=== PATIENT | female | born 1995 | race African-American/Black ===

== ENCOUNTER 2016-10-22 13:51 | Emergency (ER) | payer BC ==
[~2016-10-22] VITALS: Ht 160 cm; Wt 80.0 kg
[~2016-10-22 13:51] MED LIST: CALNA PO; FISH OIL1000 MG; IRON325 M1 PO
[2016-10-22] MEDS ORDERED: AMOXICILLIN500 MG PO (14:12)
[2016-10-22] MEDS ORDERED: MOTRIN800 MG PO (14:12)
[2016-10-22 14:20] VITALS: BP 123/69
== END 2016-10-22 14:26 | disposition home or self-care (01) | DRG 153 ==
LOC: ED 13:51
DX: H66.92 Otitis media, unspecified, left ear (principal)

== ENCOUNTER 2017-08-26 06:38 | Inpatient (IN) | payer BC, MEDICAID ==
[2017-08-26] VITALS (11 sets, daily range): BP systolic 91–119; BP diastolic 52–712
[~2017-08-26] VITALS: Ht 160 cm; Wt 79.8 kg
[~2017-08-26 06:38] MED LIST changes: +AMOXICILLIN500 MG PO; +FERR SULFATE325 MG PO; +MOTRIN800 MG PO; +PRENATAL1 TA1
--- NOTE | 2017-08-26 06:46 | NUR ---
, 40+5, C/O BLEEDING AND CRAMPING. PAD ON WC TOTALLY SATURATED WITH BRIGHT RED BLOOD. PT TRANSFERRED TO BED, LARGE AMT BRIGHT RED BLOOD POOLING DOWN HER LEG, LEAVING A 2 FOOT DIAMETER OF BLOOD ON THE FLOOR. FHT 150, DR SANCHEZ CALLED TO COME TO UNIT.
--- NOTE | 2017-08-26 07:15 | NUR ---
0710 DR SANCHEZ HERE, PLAN TO DO EMERGENCY C SECTION, PT ACKNOWLEDGES. VE BY DR SANCHEZ, PRESENTING PART NOT FELT. SMITH CATHETER INSERTED TO STRAIGHT DRAINAGE. 0715 EFM OFF, PT TO ROOM FOR C SECTION.
--- NOTE | 2017-08-26 07:30 | NUR ---
PRIMARY STAT SECTION FOR PLACENTAL ABRUPTION. TO RADIANT WARMER PER MD. NO HR, NO RESP EFFORT, NO TONE, CYANOTIC. DRIED/STIMULATED/PPV INITIATED AT 100% O2 PER [place]. 30 SECONDS HR 70 PPV CONTINUED 1 MIN HR 70, GASPING, NO TONE, CYANOTIC PULSE OX APPLIED, NOT REGISTERING 1 MIN 30 SEC HR 110, WEAK CRY, POOR RESPIRATORY EFFORT, CPAP CONTINUED 3 MIN HR 150, PULSE OX 50% 4 MIN HR 177, PULSE OX 50% 5 MIN O2 SAT 70%, O2 DECREASED TO 40% O2 SAT 88%, O2 DECREASED TO 30% 6 MIN HR 169, O2 SAT 86, O2 DECREASED TO 24% GOOD TONE, WEAK CRY BLOW BY ADMINISTERED AT 30% 9 MIN HR 186, O2 SAT 88% 0744 INFANT BANDED/FOOTPRINTS, TO NURSERY IN STABLE CONDITION 0800 DR VANCE IN NURSERY, REPORT GIVEN
[2017-08-26 07:34] LABS: HEMATOCRIT 30.6 % (37.0-47.0); HEMOGLOBIN 9.6 g/dl (12.0-16.0); IMMATURE GRANULOCYTES 0.9 % (0.0-1.0); MEAN CELL VOLUME 74.5 fL CALC (80.0-100.0); MEAN CORPUSCULAR HGB 23.4 pG CALC (26.0-32.0); MEAN CORPUSCULAR HGB CONC 31.4 g/L CALC (32.0-36.0); NEUT# 6.12 thou/uL (2.00-7.15); RED BLOOD COUNT 4.11 mill/uL (4.20-5.60)
[2017-08-26 07:38] LABS: URINE BILIRUBIN - DIPSTICK NEGATIVE (NEGATIVE); URINE BLOOD DIPSTICK SMALL (NEGATIVE); URINE COLOR YELLOW; URINE GLUCOSE - DIPSTICK NEGATIVE (NEGATIVE); URINE KETONE TRACE mg/dL (NEGATIVE); URINE LEUK ESTERASE NEGATIVE (NEGATIVE); URINE PROTEIN - DIPSTICK NEGATIVE (NEG-TRACE); URINE SPECIFIC GRAVITY >=1.030
[2017-08-26 07:40] LABS: ALBUMIN 3.1 g/dL (3.2-5.0); ALKALINE PHOSPHATASE 288 u/l (38-126); ANION GAP 15 (6-22 (CALC)); BILIRUBIN, TOTAL 0.6 mg/dL (0.0-1.4); BUN 2 mg/dL (7-17); BUN/CREATININE RATIO 4 (12-20 (CALC)); CARBON DIOXIDE 18 mmol/l (22-30); CHLORIDE 110 mmol/l (95-108); CREATININE 0.6 mg/dL (0.5-1.0); GFR > 60 ML/MIN (>=60 (CALC)); GFR FOR AFR.AMER. > 60 ML/MIN (>=60 (CALC)); POTASSIUM 3.4 mmol/l (3.5-5.1); SGOT/AST 24 u/l (14-36); SGPT/ALT 17 u/l (9-52); SODIUM 140 mmol/l (137-146)
[2017-08-26 07:43] LABS: BARBITURATES NEGATIVE (NEGATIVE); COCAINE NEGATIVE (NEGATIVE); METHADONE NEGATIVE (NEGATIVE); OXCYCODONE NEGATIVE (NEGATIVE); TETRAHYDROCANNABIONOL NEGATIVE (NEGATIVE); TRICYLIC ANTIDEPRESSANTS NEGATIVE (NEGATIVE); URINE BACTERIA RARE hpf; URINE CLARITY CLEAR; URINE EPITHELIAL CELLS FEW EPI/hpf (0-FEW); URINE NITRITE - DIPSTICK NEGATIVE (Negative); URINE WBC 0-2 WBC/hpf (0-5)
[2017-08-26 09:24] LABS: HEMATOCRIT 26.6 % (37.0-47.0); HEMOGLOBIN 8.3 g/dl (12.0-16.0); MEAN CELL VOLUME 75.1 fL CALC (80.0-100.0); MEAN CORPUSCULAR HGB 23.4 pG CALC (26.0-32.0); MEAN CORPUSCULAR HGB CONC 31.2 g/L CALC (32.0-36.0); NEUT# 9.49 thou/uL (2.00-7.15); RED BLOOD COUNT 3.54 mill/uL (4.20-5.60); RED CELL DISTRI WIDTH 16.3 % (11.5-15.5)
--- NOTE | 2017-08-26 09:40 | NUR ---
PT IS IN REC RM. DR SANCHEZ NOTIFIED OF HGB, HCT, PLT RESULTS DRAWN IN REC RM, PT HAS RECEIVED TOTAL 40 UNITS PITOCIN, FUNDUS FIRM. LOCHIA LIGHT, VS STABLE, PLAN TO CONTINUE IV FLUIDS LR. CONTINUE CYTOTEC ORDERED. REPEAT CBC IN 6 HRS.
--- NOTE | 2017-08-26 10:00 | NUR ---
PT TO ROOM 205 VIA STRETCHER, PT AWAKE, ALERT, MOVED TO BED, ABLE TO DEEP BREATHE. SCDS MAINTAINED, INFUSING W/O PROBLEM, SMITH DRAINS PALE YELLOW URINE W/O PROBLEM. PT SETTLED IN BED, FUNDUS FIRM. LOCHIA LIGHT.
--- NOTE | 2017-08-26 10:19 | NUR ---
REPORT TO ONCOMING NURSE, TO ROOM TO INTRODUCE TO PT.
--- NOTE | 2017-08-26 10:25 | NUR ---
PT SETTLED IN BED, FAMILY VISITS, PT TAKING ICE CHIPS, WATER PO. C/O THIRST, ENC TO TAKE PO FLUIDS SLOWLY. IV APPRAISER LAND INFUSES VIA PUMP, EXPLAINED TO PT.
[2017-08-26 10:46] LABS: ACT PARTIAL THROMBO TIME 26.5 SECONDS (20.0-32.5); PROTHROMBIN TIME 10.9 SECONDS (9.0-12.5)
--- NOTE | 2017-08-26 10:52 | NUR ---
PT RESTS, MEDICATED OR PAIN.
--- NOTE | 2017-08-26 12:10 | NUR ---
HOLDING , POSITIVE BONDING, S/O IN ROOM.
--- NOTE | 2017-08-26 12:30 | NUR ---
PT SITS QUIELTY DRINKS CLEAR FLUIDS. FUNDUS FIRM, LOCHIA LIGHT.
[2017-08-26] MEDS ORDERED: PRE-NATAL PO (12:55)
--- NOTE | 2017-08-26 14:00 | NUR ---
TALKS ON CELL PHONE, S/O AT SIDE.
[2017-08-26 15:54] LABS: HEMATOCRIT 23.7 % (37.0-47.0); HEMOGLOBIN 7.3 g/dl (12.0-16.0); IMMATURE GRANULOCYTES 0.4 % (0.0-1.0); MEAN CORPUSCULAR HGB 23.1 pG CALC (26.0-32.0); MEAN CORPUSCULAR HGB CONC 30.8 g/L CALC (32.0-36.0); NEUT# 7.49 thou/uL (2.00-7.15); RED BLOOD COUNT 3.16 mill/uL (4.20-5.60); RED CELL DISTRI WIDTH 15.9 % (11.5-15.5)
--- NOTE | 2017-08-26 16:25 | NUR ---
DR SANCHEZ NOTIFIED OF CBC RESULTS, PT STATUS, PLAN TO REPEAT CBC IN AM.
--- NOTE | 2017-08-26 17:24 | NUR ---
PT SITS IN BED TALKING ON CELL PHONE.
--- NOTE | 2017-08-26 19:00 | NUR ---
CARMINA CARE DONE, PT ABLE TO LIFT W/O PROBLEM. PT MEDICATED FOR PAIN WITH TORADOL. PT SITS IN BED HOLDING INFANT, GIVEN SODA PER REQUEST.
--- NOTE | 2017-08-26 19:30 | NUR ---
PT CARE ASSUMED, REPORT RECEIVED FROM MANISHA Palacios RN, PT AWAKE AND ALERT, RESTING IN BED- NO APPARENT DISTRESS OF ANY KIND NOTED, PT DENIES ANY CONCERNS AT THIS TIME, ASSESSMENT DONE- ALL WNL, IVF'S INFUSING W/OUT DIFFICULTY ORDERED, PT ENCOURAGED TO CALL NURSE FOR ANY NEEDS OR CONCERNS- VERBALIZES UNDERSTANDING, CALL BRIONES WITHIN PT'S REACH.
--- NOTE | 2017-08-26 20:17 | NUR ---
2014: PT COMPLAINS OF NOSE ITCHING. PT SCRATCHING NOSE VIGOURSLY. OFFERED NUBAIN AND PT ACCEPTED. 2017: MEDICATED WITH NUBAIN AND PERICOLACE AT THIS TIME.
[2017-08-27] VITALS: BP 94/57
--- NOTE | 2017-08-27 | NUR ---
PT AWAKE AND ALERT- RESTING IN BED, VSS, IVF'S CONT INFUSING W/OUT DIFFICULTY, PT ASSISTED UP OOB TO BR- PT VOIDED, PT RETURNED SELF TO BED W/OUT DIFFICULTY, PT C/O PAIN- MEDICATED ORDERED, WILL CONT TO MONITOR.
[2017-08-27 04:00] VITALS: BP 92/47
--- NOTE | 2017-08-27 06:00 | NUR ---
PT RESTING QUIETLY IN BED- AROUSES EASILY, AM LAB DRAWN ORDERED, PT DENIES ANY CONCERNS AT THIS TIME, REENCOURAGED TO CALL OUT FOR ANY NEEDS- PT VERBALIZES UNDERSTANDING.
[2017-08-27 06:29] LABS: HEMATOCRIT 21.8 % (37.0-47.0); IMMATURE GRANULOCYTES 0.6 % (0.0-1.0); MEAN CELL VOLUME 75.4 fL CALC (80.0-100.0); MEAN CORPUSCULAR HGB 23.2 pG CALC (26.0-32.0); MEAN CORPUSCULAR HGB CONC 30.7 g/L CALC (32.0-36.0); NEUT# 5.79 thou/uL (2.00-7.15); RED BLOOD COUNT 2.89 mill/uL (4.20-5.60); RED CELL DISTRI WIDTH 16.1 % (11.5-15.5)
[2017-08-27 06:30] LABS: HEMOGLOBIN 6.7 g/dl (12.0-16.0)
[2017-08-27 07:05] VITALS: BP 102/54
--- NOTE | 2017-08-27 07:05 | NUR ---
REPORT RECEIVED BY JOÃO LEIVA. 8941: PT IS RESTING IN BED. ASSESSMENT DONE AND VS CHARTED. PT STATED THAT SHE DOES NOT HAVE PAIN AT THIS TIME. PT STATED THAT SHE HAD A BM. PT DENIES ANY NEEDS AT THIS TIME. CALL LIGHT IN REACH.
--- NOTE | 2017-08-27 07:05 | NUR ---
0650: REPORT RECEIVED BY JOÃO LEIVA. 0705: PT IS RESTING IN BED. ASSESSMENT DONE AND VS CHARTED. PT STATED THAT SHE DOES NOT HAVE PAIN AT THIS TIME. PT STATED THAT SHE HAS NOT PASS GAS YET. ENCOURAGE PT TO AMBULATE IN THE HALLWAYS. PT VERBALIZED UNDERSTANDING. PT DENIES ANY NEEDS AT THIS TIME. CALL LIGHT IN REACH.
--- NOTE | 2017-08-27 07:50 | NUR ---
REVIEW PT CBC. DR. SANCHEZ AT BEDSIDE. DICUSSED PLAN OF CARE WITH PATIENT AND PATIENT VERBALIZED UNDERSTANDING. PT DENIES FEELING DIZZY.
--- NOTE | 2017-08-27 09:51 | NUR ---
0936:DR. BERRIOS CALLED RE: PT CBC. NOTIFIED MD THAT DR. SANCHEZ IS AWARE. NOTIFIED PT ABOUT A BLOOD TRANSFUSION PER DR. BERRIOS. PATIENT STATED THAT SHE WANTED TO THINK ABOUT IT. PT STATED THAT SHE WANTS TO TAKE A SHOWER LATER. ENCOURAGE PT TO DRINK FLUIDS AND PT VERBALIZED UNDERSTANDING. 0940: PT OOB TO THE BATHROOM AND PT STATED THAT SHE DID NOT FEEL DIZZY. 0951: PAIN MEDICATION GIVEN SEE EMAR.
--- NOTE | 2017-08-27 10:21 | NUR ---
REGINERT IN TO SETUP PT FOR INCENTIVE SPIROMERTY.
--- NOTE | 2017-08-27 11:46 | NUR ---
1140:OOB TO VOID . LOCHIA IS LIGHT. PT STATED THAT SHE DOES NOT FEEL DIZZY. PT STATED THAT SHE FEELS LIKE SHE IS GOING TO START PASSING GAS. SISTER IN ROOM. 1146: DR. BERRIOS AT BEDSIDE. DISCUSSED WITH PT ABOUT HER CBC. PT STATED THAT SHE DOES NOT WANT TO GET A BLOOD TRANSFUSION.
--- NOTE | 2017-08-27 13:11 | NUR ---
PT IS SITTING IN BED VISITING WITH FAMILY. PT DENIES ANY NEEDS AT THIS TIME.
--- NOTE | 2017-08-27 14:00 | NUR ---
1346: PAIN MEDICATION GIVEN SEE EMAR. 1352: PT AMBULATING IN THE HALLWAY HOLDING TO INFANT CRIB. NURSE AT SIDE. PT DENIES FEELING DIZZY. 1400: PATIENT IN THE BATHROOM TO VOID. SETUP PT FOR A SHOWER.
[2017-08-27 15:50] VITALS: BP 105/69
--- NOTE | 2017-08-27 16:39 | NUR ---
PT IS RESTING IN BED VISITING WITH FAMILY. PT DENIES ANY NEEDS AT THIS TIME. CALL LIGHT IN REACH.
--- NOTE | 2017-08-27 18:16 | NUR ---
PT STATED THAT SHE HAS PASS GAS NOW. ENCOURAGE PT TO AMBULATE AGAIN IN THE HALLWAYS AND PT VERBALIZED UNDERSTADNIG. PT DENIES ANY NEEDS AT THIS TIME. REPORT READY FOR ONCOMING SHIFT.
[2017-08-27 21:50] VITALS: BP 113/58
--- NOTE | 2017-08-27 22:10 | NUR ---
2149 PT ASSESSMENT AND VS STABLE CHARTED. PT C/O PAIN AND GRIMACED WITH FEEL TO ABDOMAN. 2207 MOTRIN GIVEN PER EMAR. PT ASSISTED UP IN BED DUE TO PAIN. BECAME TEARY EYED. ASKED PATIENT WHAT WAS WRONG, SHE EXPLAINED SHE WAS FINE. DECLINED TO TALK. EXPLAINED TO CALL IF THERE WAS ANYTHING WE COULD DO OR GET HER. ENCOURAGED FLUIDS AND BROUGHT JUICE. CALL LIGHT IN REACH. FOB AT BEDSIDE. WILL CONTINUE TO MONITOR.
--- NOTE | 2017-08-27 23:50 | NUR ---
PT ASSISTED UP TO BATHROOM SLIGHTLY BENT OVER HOLDING ABDOMAN. URINATED LARGE AMOUNT. PERICARE DONE BY PATIENT AND ASSISTED BACK TO BED. PT OFFERED PAIN MED. STATES SHE WAS DOING OK UNTIL SHE TRIED TO GET UP.
--- NOTE | 2017-08-28 07:01 | NUR ---
REPORT GIVEN TO Harvinder DENNIS RN. PT LAYING IN BED WITH NEXT TO HER AWAKE. DENIES PAIN AT THIS TIME. GATORADE GIVEN PER REQUEST. CALL LIGHT IN REACH. S/O AT BEDSIDE.
--- NOTE | 2017-08-28 07:03 | NUR ---
PT AWAKE, RESTING IN BED. MEDICATED WITH LORTAB FOR PAIN. DENIES ANY OTHER NEEDS AT THIS TIME.
[2017-08-28 08:20] VITALS: BP 100/55
--- NOTE | 2017-08-28 08:20 | NUR ---
VS AND ASSESSMENT DONE, STABLE, DENIES ANY PAIN AT THIS TIME. DISCUSSED PLAN OF CARE WITH PT, PT VERBALIZED UNDERSTANDING.
[2017-08-28] MEDS ORDERED: LORTAB 7.57.5 MG PO (09:10)
[2017-08-28] MEDS ORDERED: IBUPROFEN600 MG PO (09:10)
[2017-08-28] MEDS ORDERED: FERR SULFATE325 MG PO (09:12)
--- NOTE | 2017-08-28 10:00 | NUR ---
DISCHARGE INSTRUCTIONS GIVEN TO PT, INCLUDING RX FOR MOTRIN, LORTAB AND IRON. PT REFUSED TDAP VACCINE, AND STATES SHE ALREADY HAD THE FLU VACCINE. ALL QUESTIONS ANSWERED. PT VERBALIZED UNDERSTANDING.
--- NOTE | 2017-08-28 12:50 | NUR ---
PT DISCHARGED HOME, IN STABLE CONDITION, VIA WHEELCHAIR, WITH FAMILY MEMBER.
== END 2017-08-28 12:45 | disposition home or self-care (01) | DRG 766 ==
LOC: OBOP 06:38 → EDSTATUS 06:40 → OB 06:50 → OBOP 06:50 → OB 07:00
PROVIDERS: ADMIT Obstetrics & Gynecology; ATTEND Obstetrics & Gynecology
PROC: 10D00Z1 Extraction of Products of Conception, Low, Open Approach (ICD-10-PCS; principal; 2017-08-26)
DX: O45.93 Premature separation of placenta, unspecified, third trimester (principal); O32.2XX0 Maternal care for transverse and oblique lie, not applicable or unspecified; O62.2 Other uterine inertia; Z37.0 Single live birth; Z3A.40 40 weeks gestation of pregnancy

== ENCOUNTER 2018-10-22 13:12 | Emergency (ER) | payer BC, MEDICAID ==
[~2018-10-22] VITALS: Ht 160 cm; Wt 69.5 kg
[~2018-10-22 13:12] MED LIST changes: +IBUPROFEN600 MG PO; +LORTAB 7.57.5 MG PO; +PRE-NATAL PO
[2018-10-22 14:06] LABS: MEAN CORPUSCULAR HGB 19.8 pG CALC (26.0-32.0); MEAN CORPUSCULAR HGB CONC 29.5 g/L CALC (32.0-36.0); NEUT# 2.16 thou/uL (2.00-7.15); RED BLOOD COUNT 4.85 mill/uL (4.20-5.60); RED CELL DISTRI WIDTH 17.6 % (11.5-15.5)
[2018-10-22 14:07] LABS: HEMATOCRIT 32.5 % (37.0-47.0); HEMOGLOBIN 9.6 g/dl (12.0-16.0)
[2018-10-22 14:28] LABS: BILIRUBIN, TOTAL 0.3 mg/dL (0.0-1.4); BUN 9 mg/dL (7-17); BUN/CREATININE RATIO 14 (12-20 (CALC)); CHLORIDE 102 mmol/l (95-108); CREATININE 0.7 mg/dL (0.5-1.0); GFR > 60 ML/MIN (>=60 (CALC)); GFR FOR AFR.AMER. > 60 ML/MIN (>=60 (CALC)); LIPASE 109 u/l (23-300); SGOT/AST 22 u/l (14-36); SODIUM 136 mmol/l (137-146)
[2018-10-22 14:29] LABS: ALBUMIN 4.2 g/dL (3.2-5.0); ALKALINE PHOSPHATASE 55 u/l (38-126); ANION GAP 14 (6-22 (CALC)); CARBON DIOXIDE 24 mmol/l (22-30); POTASSIUM 4.1 mmol/l (3.5-5.1); TOTAL PROTEIN 7.4 g/dL (6.3-8.2)
[2018-10-22 15:38] LABS: URINE BILIRUBIN - DIPSTICK NEGATIVE (NEGATIVE); URINE BLOOD DIPSTICK NEGATIVE (NEGATIVE); URINE COLOR YELLOW; URINE GLUCOSE - DIPSTICK NEGATIVE (NEGATIVE); URINE KETONE NEGATIVE (NEGATIVE); URINE LEUK ESTERASE NEGATIVE (NEGATIVE); URINE NITRITE - DIPSTICK NEGATIVE (Negative); URINE PROTEIN - DIPSTICK NEGATIVE (NEG-TRACE); URINE SPECIFIC GRAVITY <=1.005; URINE UROBILINOGEN - DIPSTICK 0.2 E.U./dL (0.2)
[2018-10-22 15:56] VITALS: BP 113/58
== END 2018-10-22 16:03 | disposition home or self-care (01) | DRG 563 ==
LOC: ED 13:12
PROVIDERS: Family Medicine
DX: S39.011A Strain of muscle, fascia and tendon of abdomen, initial encounter (principal); X58.XXXA Exposure to other specified factors, initial encounter
CPT/HCPCS: Q9967

== ENCOUNTER 2018-11-02 19:22 | Emergency (ER) | payer OTHER, BC ==
[~2018-11-02] VITALS: Ht 160 cm; Wt 71.0 kg
[2018-11-02 20:12] LABS: URINE BILIRUBIN - DIPSTICK NEGATIVE (NEGATIVE); URINE BLOOD DIPSTICK NEGATIVE (NEGATIVE); URINE CLARITY CLEAR; URINE COLOR YELLOW; URINE GLUCOSE - DIPSTICK NEGATIVE (NEGATIVE); URINE KETONE NEGATIVE (NEGATIVE); URINE LEUK ESTERASE SMALL (Negative); URINE NITRITE - DIPSTICK NEGATIVE (Negative); URINE PROTEIN - DIPSTICK NEGATIVE (NEG-TRACE); URINE SPECIFIC GRAVITY 1.025; URINE UROBILINOGEN - DIPSTICK 0.2 E.U./dL (0.2)
[2018-11-02 20:20] LABS: URINE SQUAMOUS EPITHELIAL CELL FEW EPI/hpf (0-FEW)
[2018-11-02] MEDS ORDERED: FLEXERIL PO (21:12)
[2018-11-02 22:15] VITALS: BP 112/72
== END 2018-11-02 22:22 | disposition home or self-care (01) | DRG 563 ==
LOC: ED 19:22
PROC: 2W28X4Z Dressing of Right Upper Extremity using Bandage (ICD-10-PCS; principal; 2018-11-02)
DX: S39.012A Strain of muscle, fascia and tendon of lower back, initial encounter (principal); T22.111A Burn of first degree of right forearm, initial encounter; R51 Headache; V43.52XA Car driver injured in collision with other type car in traffic accident, initial encounter; W22.11XA Striking against or struck by driver side automobile airbag, initial encounter; Y92.410 Unspecified street and highway as the place of occurrence of the external cause

== ENCOUNTER 2020-05-09 15:13 | Emergency (ER) | payer OTHER, BC ==
[~2020-05-09] VITALS: Ht 160 cm; Wt 80.0 kg
[~2020-05-09 15:13] MED LIST changes: +FLEXERIL PO
[2020-05-09 15:44] LABS: URINE BILIRUBIN - DIPSTICK NEGATIVE (NEGATIVE); URINE BLOOD DIPSTICK LARGE (NEGATIVE); URINE CLARITY CLEAR; URINE COLOR YELLOW; URINE GLUCOSE - DIPSTICK NEGATIVE (NEGATIVE); URINE KETONE NEGATIVE (NEGATIVE); URINE LEUK ESTERASE NEGATIVE (Negative); URINE NITRITE - DIPSTICK NEGATIVE (Negative); URINE PROTEIN - DIPSTICK NEGATIVE (NEG-TRACE); URINE SPECIFIC GRAVITY >=1.030; URINE UROBILINOGEN - DIPSTICK 0.2 E.U./dL (0.2)
[2020-05-09 15:53] LABS: URINE SQUAMOUS EPITHELIAL CELL FEW EPI/hpf (0-FEW); URINE WBC 0-2 WBC/hpf (0-5)
[2020-05-09] MEDS ORDERED: MORPHINE SUL30 M3 PO (15:56)
[2020-05-09] MEDS ORDERED: OXYCODONE15 MG PO (15:57)
[2020-05-09 17:25] VITALS: BP 125/80
== END 2020-05-09 17:25 | disposition home or self-care (01) | DRG 563 ==
LOC: ED 15:13
DX: S46.912A Strain of unspecified muscle, fascia and tendon at shoulder and upper arm level, left arm, initial encounter (principal); V43.52XA Car driver injured in collision with other type car in traffic accident, initial encounter

== ENCOUNTER 2020-05-11 14:38 | Emergency (ER) | payer OTHER, BC ==
[~2020-05-11] VITALS: Ht 160 cm; Wt 75.0 kg
[~2020-05-11 14:38] MED LIST changes: +MORPHINE SUL30 M3 PO; +OXYCODONE15 MG PO
[2020-05-11 16:15] VITALS: BP 120/56
== END 2020-05-11 16:15 | disposition home or self-care (01) | DRG 552 ==
LOC: ED 14:38
DX: S33.5XXA Sprain of ligaments of lumbar spine, initial encounter (principal); V89.2XXA Person injured in unspecified motor-vehicle accident, traffic, initial encounter; Z79.891 Long term (current) use of opiate analgesic

== ENCOUNTER 2020-08-29 17:16 | Emergency (ER) | payer BC ==
[~2020-08-29] VITALS: Ht 160 cm; Wt 71.4 kg
[2020-08-29] MEDS ORDERED: AMOXICILLIN500 MG PO (17:43)
[2020-08-29] MEDS ORDERED: OXYCODONE20 M1 PO (18:21)
[2020-08-29 19:05] VITALS: BP 118/71
== END 2020-08-29 19:05 | disposition home or self-care (01) | DRG 866 ==
LOC: ED 17:16
DX: B34.9 Viral infection, unspecified (principal); R43.8 Other disturbances of smell and taste; Z20.822 Contact with and (suspected) exposure to COVID-19

== ENCOUNTER 2022-12-04 09:43 | Emergency (ER) | payer BC ==
[~2022-12-04] VITALS: Ht 160 cm; Wt 87.3 kg
[~2022-12-04 09:43] MED LIST changes: +OXYCODONE20 M1 PO
[2022-12-04 10:16] LABS: URINE BILIRUBIN - DIPSTICK NEGATIVE (NEGATIVE); URINE BLOOD DIPSTICK LARGE (NEGATIVE); URINE GLUCOSE - DIPSTICK NEGATIVE (NEGATIVE); URINE KETONE NEGATIVE (NEGATIVE); URINE PROTEIN - DIPSTICK >=300 mg/dL (NEG-TRACE); URINE SPECIFIC GRAVITY 1.025
[2022-12-04 10:19] LABS: URINE COLOR RED; URINE LEUK ESTERASE MODERATE (NEGATIVE); URINE NITRITE - DIPSTICK NEGATIVE (Negative)
[2022-12-04 10:21] LABS: URINE BACTERIA FEW hpf; URINE EPITHELIAL CELLS MODERATE EPI/hpf (0-FEW); URINE RBC 50-100 RBC/hpf (0-5); URINE WBC 20-50 WBC/hpf (0-5)
[2022-12-04 11:08] VITALS: BP 111/53
[2022-12-04 11:15] VITALS: BP 108/72
[2022-12-04 11:30] VITALS: BP 120/96
[2022-12-04] MEDS ORDERED: KEFLEX500 MG PO (11:40)
[2022-12-04] MEDS ORDERED: PHENAZOPYRIDIN100 M1 PO (11:41)
[2022-12-04 11:46] VITALS: BP 117/62
== END 2022-12-04 11:51 | disposition home or self-care (01) | DRG 832 ==
LOC: ED 09:43
PROVIDERS: Family Medicine
DX: O23.40 Unspecified infection of urinary tract in pregnancy, unspecified trimester (principal); N39.0 Urinary tract infection, site not specified; Z3A.00 Weeks of gestation of pregnancy not specified

== ENCOUNTER 2024-08-26 13:54 | Emergency (ER) | payer MEDICAID ==
[~2024-08-26] VITALS: Ht 160 cm; Wt 82.0 kg
[~2024-08-26 13:54] MED LIST changes: +KEFLEX500 MG PO; +PHENAZOPYRIDIN100 M1 PO
[2024-08-26 14:00] VITALS: BP 126/91
[2024-08-26] MEDS ORDERED: PENICILLN VK500 MG PO (14:03)
[2024-08-26] MEDS ORDERED: LORTAB 5/3255 MG PO (14:03)
[2024-08-26 14:04] VITALS: BP 126/91
[2024-08-26] MEDS ORDERED: PENicillin V POTASSIUM 500 MG/TAB PO ONE (14:05)
[2024-08-26] MEDS ORDERED: ACETAMINOPHEN 325 MG/TAB PO ONE (14:05)
== END 2024-08-26 14:22 | disposition home or self-care (01) ==
LOC: ED 13:54
DX: O99.613 Diseases of the digestive system complicating pregnancy, third trimester (principal); K04.7 Periapical abscess without sinus; K08.409 Partial loss of teeth, unspecified cause, unspecified class; Z3A.00 Weeks of gestation of pregnancy not specified

== ENCOUNTER 2024-10-03 18:02 | Emergency (ER) | payer OTHER ==
[~2024-10-03] VITALS: Ht 160 cm; Wt 95.0 kg
[~2024-10-03 18:02] MED LIST changes: +LORTAB 5/3255 MG PO; +PENICILLN VK500 MG PO
[2024-10-03] MEDS ORDERED: ACETAMINOPHEN 325 MG/TAB PO ONE (19:20)
[2024-10-03 19:36] VITALS: BP 121/75
== END 2024-10-03 19:36 | disposition home or self-care (01) ==
LOC: ED 18:02
DX: O9A.213 Injury, poisoning and certain other consequences of external causes complicating pregnancy, third trimester (principal); S82.51XA Displaced fracture of medial malleolus of right tibia, initial encounter for closed fracture; S82.832A Other fracture of upper and lower end of left fibula, initial encounter for closed fracture; W01.0XXA Fall on same level from slipping, tripping and stumbling without subsequent striking against object, initial encounter; Y92.009 Unspecified place in unspecified non-institutional (private) residence as the place of occurrence of the external cause; Z3A.38 38 weeks gestation of pregnancy